=== PATIENT | female | born 1985 | race Two or more races ===

== ENCOUNTER 2022-11-17 15:24 | Emergency (ER) | payer OTHER ==
[~2022-11-17] VITALS: Ht 160 cm; Wt 82.7 kg
[2022-11-17 19:21] VITALS: BP 139/95; PULSE 101; RESP 20; TEMP 98.3; O2SAT 97
== END 2022-11-17 19:30 | disposition left against medical advice (07) ==
LOC: EDBD 15:24 → ER 15:24
DX: R50.9 Fever, unspecified (principal); Z53.21 Procedure and treatment not carried out due to patient leaving prior to being seen by health care provider